=== PATIENT | female | born 1985 | race Caucasian/White ===

== ENCOUNTER → 2021-12-13 | Day surgery (SDC) | payer OTHER ==
[~2021-12-13] VITALS: Ht 162.6 cm; Wt 78.5 kg
[~2021-12-13] MED LIST: IBUPROFEN800 MG PO; PROTONIX 40MG T40 MG PO; TOPROL XL 50 MG50 MG PO; XANAX0.25 MG PO; ZYRTEC10 M3 PO
[2021-12-13 11:08] LABS: HCT 30.9 % (37.0-47.0); HGB 9.6 g/dl (12.5-16.0); MCH 27.7 pg (25.0-31.0); MCHC 31.1 g/dL (32.0-36.0); MCV 89.3 fL (78.0-100.0); MPV 9.6 fL (6.0-9.5); RBC 3.46 M/uL (4.20-5.40); RDW 14.8 % (11.5-14.0)
[2021-12-13 11:14] LABS: HCG (URINE) SCREEN NEGATIVE (NEGATIVE)
[2021-12-13 11:19] LABS: BUN/CREAT RATIO (CALC) 13.4 RATIO; CREATININE 0.67 mg/dL (0.51-0.95); POTASSIUM 4.1 mmol/L (3.5-5.1)
== END | disposition home or self-care (01) ==
LOC: FAS 10:22
PROVIDERS: Specialist
DX: N72 Inflammatory disease of cervix uteri (principal); N87.9 Dysplasia of cervix uteri, unspecified; N80.0 Endometriosis of uterus; N73.6 Female pelvic peritoneal adhesions (postinfective); F17.200 Nicotine dependence, unspecified, uncomplicated; D50.9 Iron deficiency anemia, unspecified; I10 Essential (primary) hypertension; Z20.822 Contact with and (suspected) exposure to COVID-19
CPT/HCPCS: 36415; 80048; 84703; 86850; 86900; 86901; J0690; J1100; J1170; J2250; J2405; J2704; J2710; J3010; J7040; J7120; Q9968; U0002